=== PATIENT | male | born 1950 | race Caucasian/White ===

== ENCOUNTER 2020-09-05 19:39 | Inpatient (IN) | payer OTHER ==
[~2020-09-05] VITALS: Ht 152.4 cm; Wt 84.4 kg
--- NOTE | ~2020-09-05 | EKG ---
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
[~2020-09-05 19:39] MED LIST: ADULT LOW DOSE81 MG PO; COZAAR 25 MG TA25 MG PO; CRESTOR; LISINOPRIL10 MG PO; MECLIZINE HCL25 M1 PO; METFORMIN 500500 MG PO
[2020-09-05 19:44] VITALS: BP 172/89
[2020-09-05] MEDS ORDERED: GLIPIZIDE 10 MG10 MG PO (20:05)
[2020-09-05] MEDS ORDERED: TOPROL XL100 MG PO (20:06)
[2020-09-05] MEDS ORDERED: LOPRESSOR50 MG PO (20:07)
[2020-09-05] MEDS ORDERED: JARDIANCE25 MG PO (20:08)
[2020-09-05] MEDS ORDERED: LIPITOR80 MG PO (20:08)
[2020-09-05] MEDS ORDERED: HYDROCHLOROTHIA25 M2 PO (20:09)
[2020-09-05] MEDS ORDERED: XARELTO20 MG PO (20:09)
[2020-09-05] MEDS ORDERED: KOMBIGLYZE XR1 EAC1 PO (20:10)
[2020-09-05] MEDS ORDERED: METFORMIN HCL500 MG PO (20:12)
[2020-09-05] MEDS ORDERED: ALOGLIPTIN25 MG PO (20:13)
--- NOTE | 2020-09-05 20:43 | NUR ---
[address] [place] [id number] [phone] EMERGENCY CONTACT SUKI MAGUIRE [phone] INSURANCE ETNA
[2020-09-05 20:45] LABS: ABSOLUTE NEUTROPHILS 5.7 thou/uL (1.4-8.2); BASOPHILS 0.8 % (0.0-2.0); HEMATOCRIT 40.6 % (42.0-52.0); HEMOGLOBIN 13.9 gm/dL (14.0-18.0); LYMPHOCYTES 10.5 % (24.0-44.0); MCH 29.4 pg (26.0-34.0); MCHC 34.2 g/dL (28.0-37.0); MONOCYTES 7.1 % (1.0-8.0); PLATELET COUNT 141 thou/uL (150-400); POLYS 81.6 % (36.0-66.0); RBC 4.72 mil/uL (4.50-6.00); RDW 14.7 % (10.5-14.5)
[2020-09-05 21:01] LABS: ALBUMIN 3.3 g/dL (3.4-5.0); CALCIUM 8.8 mg/dL (8.5-10.1); DIRECT BILIRUBIN 0.4 mg/dL (<0.1-0.2); TOTAL BILIRUBIN 1.2 mg/dL (0.2-1.0); TOTAL PROTEIN 7.5 g/dL (6.4-8.2)
[2020-09-05 21:03] LABS: POTASSIUM 2.7 mmol/L (3.5-5.1)
[2020-09-05 23:41] VITALS: BP 127/75
--- NOTE | 2020-09-05 23:57 | NUR ---
TRIED TO CALL REPORT. NURSE UNAVAILABLE
[2020-09-06 00:04] LABS: URINE BILIRUBIN NEGATIVE (Negative); URINE BLOOD NEGATIVE (Negative); URINE CLARITY CLEAR; URINE COLOR YELLOW; URINE GLUCOSE-RANDOM* 3+ (Negative); URINE KETONES 2+ (Negative); URINE LEUKOCYTES-REFLEX NEGATIVE (Negative); URINE NITRITE-REFLEX NEGATIVE (Negative); URINE PROTEIN (DIPSTICK) NEGATIVE (Negative); URINE UROBILINOGEN 0.2 E.U./dl (0.2-1.0)
--- NOTE | 2020-09-06 04:10 | NUR ---
ADMIT PT ADMITTED TO ROOM 353 VIA ED WITH DIAGNOSIS OF COVID. IV SL TO RIGHT AC FLUSHES WITHOUT DIFFICULTY. WENDIE OAKLEY NOTIFIED OF POSITIVE COVID RESULTS. AWAITNG ORDERS. PT ORIENTED TO ROOM CALL LIGHT AND POC.
[2020-09-06 04:37] VITALS: BP 118/76
[2020-09-06 06:07] LABS: HEMATOCRIT 38.5 % (42.0-52.0); HEMOGLOBIN 13.7 gm/dL (14.0-18.0); MCH 30.2 pg (26.0-34.0); MCHC 35.5 g/dL (28.0-37.0); MCV 85.2 fL (80.0-100.0); RBC 4.52 mil/uL (4.50-6.00); RDW 14.4 % (10.5-14.5)
[2020-09-06 06:22] LABS: CREATININE 0.9 mg/dL (0.7-1.3); POTASSIUM 3.1 mmol/L (3.5-5.1)
[2020-09-06 09:04] VITALS: BP 122/70
--- NOTE | 2020-09-06 10:17 | NUR ---
cm notified during prime time via phone call, that pt just found out that his daughter who was in the icu did not make it. pt also on 3w. he is covid r/o. no anticipated dc over the weekend.
[2020-09-06 16:35] VITALS: BP 120/73
--- NOTE | 2020-09-06 17:31 | NUR ---
PATIENT HAS RESTED IN ROOM THROUGH THE DAY. HE LEARNED FROM THAT THEIR DAUGHTER WHO WAS IN THE ICU DID NOT MAKE IT. PATIENT SILENT IN ROOM. NOTED SOBBING AT TIMES. OFFERED XANAX BUT HE DECLINED STATING HE WILL GO THROUGH THIS. PLEASANT WITH CARES.
[2020-09-06 20:00] VITALS: BP 116/67
--- NOTE | 2020-09-07 01:54 | NUR ---
PT LYING IN BED. DENIES PAIN. RESTING COMFORTABLY. NO NEEDS VOICED. CALL LIGHT WITHIN REACH. FREQUENT OBSERVATION.
[2020-09-07 04:05] VITALS: BP 99/56
[2020-09-07 06:28] LABS: CHOLESTEROL 162 mg/dL (<200); HDL CHOLESTEROL 46 mg/dL (>40); LDL CHOLESTEROL 101 mg/dL (<100); TC:HDL 3.5 Ratio (Not establshd); TRIGLYCERIDE 78 mg/dL (<150); VLDL 16 mg/dL (<40)
[2020-09-07 06:33] LABS: CREATININE 0.8 mg/dL (0.7-1.3); DIRECT BILIRUBIN 0.3 mg/dL (<0.1-0.2); TOTAL BILIRUBIN 0.9 mg/dL (0.2-1.0); TOTAL PROTEIN 6.3 g/dL (6.4-8.2)
[2020-09-07 07:40] VITALS: BP 99/62
[2020-09-07 16:00] VITALS: BP 101/62
--- NOTE | 2020-09-07 19:24 | NUR ---
PATIENT RESTED IN ROOM THROUGH THE DAY. HE IS ALERT ORIENTED X4. RESPIRATIONS ARE NON LABORED., PLEASANT WITH CARE. UP AD KYLE IN ROOM. HAD A SHOWER THIS PM. CONT ON COVID19 THERAPY. TOLERATING WELL.
[2020-09-07 19:34] VITALS: BP 111/59
[2020-09-08 03:40] VITALS: BP 97/55
[2020-09-08 06:20] LABS: HEMATOCRIT 37.7 % (42.0-52.0); HEMOGLOBIN 12.9 gm/dL (14.0-18.0); MCH 29.1 pg (26.0-34.0); MCHC 34.2 g/dL (28.0-37.0); MCV 85.1 fL (80.0-100.0); RBC 4.43 mil/uL (4.50-6.00); RDW 14.7 % (10.5-14.5); WBC 10.6 thou/uL (4.0-11.0)
[2020-09-08 06:27] LABS: CALCIUM 8.8 mg/dL (8.5-10.1); CREATININE 0.9 mg/dL (0.7-1.3); MAGNESIUM 2.3 mg/dL (1.8-2.4); POTASSIUM 3.4 mmol/L (3.5-5.1)
[2020-09-08 06:31] LABS: ALBUMIN 2.6 g/dL (3.4-5.0); DIRECT BILIRUBIN 0.2 mg/dL (<0.1-0.2); TOTAL BILIRUBIN 0.6 mg/dL (0.2-1.0); TOTAL PROTEIN 6.3 g/dL (6.4-8.2)
--- NOTE | 2020-09-08 06:43 | NUR ---
ASSUMED CARE AT 1900, ASSESSMENT COMPLETED. PT DENIED PAIN OR NAUSEA, REPORTED OCCASIONAL COUGH. PT IS DEPRESSED/SAD D/T RECENT OF DAUGHTER AND HAVING TO STAY IN HOSPITAL. HAS BEEN AFIB W/BBB HR 70-90 OVERNIGHT. NO OTHER CONCERNS, WILL CONTINUE TO MONITOR.
--- NOTE | 2020-09-08 11:33 | NUR ---
ORDERS RECEIVED FOR EVAL AND TREAT. NURSING NOTES SAY Pt UP AD KYLE. SPOKE WITH Pt WHO STATES HE GETS UP TO THE BATHROOM BY HIMSELF AND HAS BEEN WALKING IN THE ROOM WITHOUT DIFFICULTY. Pt DECLINING FORMAL P.T. EVAL. NURSING AWARE AND IN AGREEMENT.
[2020-09-08 15:17] VITALS: BP 106/70
--- NOTE | 2020-09-08 19:25 | NUR ---
PT WAS SEEN BY THIS SHIFT. NO ACUTE PROCESSES THIS SHIFT. PT IS STILL ON THE REMDESEVIR THERAPY, ALL MEDICATIONS WERE GIVEN ORDERED, PT PRESENTED WITH DEPRESSION AT THE BEGNNING OF THE SHIFT BUT WAS BRIGHTER TOWARDS THE END. PT IS STILL WEAK, SHOWING SIGNS OF FATIGUE WITH LITTLE MOVEMENT. PTS PRIMARY CONCERN THIS SHIFT WAS RETURNING TO [employer] AND RETREIVING A DR'S NOTE TO SUBMIT TO WORK. RN SIGNING OFF AT THIS TIME.
[2020-09-08 20:06] VITALS: BP 125/58
[2020-09-09 03:58] VITALS: BP 99/60
[2020-09-09 05:37] LABS: ALBUMIN 2.6 g/dL (3.4-5.0); DIRECT BILIRUBIN 0.1 mg/dL (<0.1-0.2); TOTAL BILIRUBIN 0.4 mg/dL (0.2-1.0); TOTAL PROTEIN 6.1 g/dL (6.4-8.2)
[2020-09-09 06:06] LABS: CALCIUM 8.7 mg/dL (8.5-10.1); CREATININE 0.9 mg/dL (0.7-1.3); POTASSIUM 4.2 mmol/L (3.5-5.1)
--- NOTE | 2020-09-09 07:34 | NUR ---
ASSUMED PT CARE AROUND 1930. AXOX4. INDEPENDENT WITH ADLs. VSS. NO S/S ACUTE DISTRESS NOTED OR REPORTED AT THIS TIME. CARE TRANSFEERED TO AM RN AT THIS TIME.
[2020-09-09 07:48] VITALS: BP 110/68
--- NOTE | 2020-09-09 13:24 | NUR ---
PT ALERT AND ORIENTED TIMES FOUR. VSS. PT DENIES PAIN/SOA. PT UP AB KYLE WITH STEADY GAIT. PT TOLERATES MEDS AND MEALS. PT PROGRESSING TOWRADS POC GOALS.
[2020-09-09 15:30] VITALS: BP 115/82
[2020-09-09 15:46] VITALS: BP 115/82
--- NOTE | 2020-09-09 15:47 | NUR ---
Chart reviewed and discussed with the care team. Pt is on the Covid unit and in enhanced ISO. He is from home and lives with his who is currently inpt in 358 as well. Their dtr Robyn over the weekend from Covid. Dtr Denise updated today and notes that she has recovered from Covid and returned to work today. She is available in the afternoon to transport the pt home. She reports that he is normally indep and was working prior to getting sick. He is currently up ad yobani in the room and anxious to dc home. No dme or hh f/u are indicated at this time. He is on roomair. Pt to get his last dose of Remdesivir tomorrow and may be able to dc home after. Will follow along should dc needs arise.
[2020-09-09 19:45] VITALS: BP 99/59
--- NOTE | 2020-09-10 03:22 | NUR ---
PT AOX4.PT DENIES PAIN AND SOB WHILE ON ROOM AIR. PT TOLERATING PO INTAKE OF FLUIDS AND HEART HEALTHY DIET WITHOUT ISSUE, MAINTAINS GOOD APPETITE. PT AMBULATING INDEPENDENTLY IN ROOM TO BATHROOM. PT NOT EXPRESSING SIGNS OF POOR COPING WITH RECENT LOSS OF DAUGHTER AND HOSPITALIZATION OF SELF AND . PT DENIES ANXIETY, PT HAS PRN PO XANAX Q6HR AVAILABLE. PT ENCOURAGED TO NOTIFY STAFF FOR ALL NEEDS, CALL LIGHT WITHIN REACH, BED IN LOWEST POSITION, FREQUENT MONITORING WILL CONTINUE.
[2020-09-10 04:02] VITALS: BP 109/65
[2020-09-10 06:51] LABS: ALBUMIN 2.6 g/dL (3.4-5.0); CREATININE 0.8 mg/dL (0.7-1.3); DIRECT BILIRUBIN 0.2 mg/dL (<0.1-0.2); TOTAL BILIRUBIN 0.6 mg/dL (0.2-1.0); TOTAL PROTEIN 5.9 g/dL (6.4-8.2)
[2020-09-10 07:27] VITALS: BP 125/85
[2020-09-10] MEDS ORDERED: VITAMIN D325 MC1 PO (10:41)
[2020-09-10] MEDS ORDERED: VITAMIN B-1100 M2 PO (10:41)
[2020-09-10] MEDS ORDERED: ZINC SULFATE 2220 MG PO (10:41)
[2020-09-10] MEDS ORDERED: PREDNISONE 10 M10 M1 PO (10:42)
[2020-09-10] MEDS ORDERED: CEFUROXIME250 MG PO (10:43)
[2020-09-10 13:15] VITALS: BP 115/82
--- NOTE | 2020-09-10 14:46 | NUR ---
DISCHARGE NOTE: SW reviewed chart and spoke with nursing and attending physician. Pt remains in Enhanced Isolation due to COVID-19. Pt to complete course of Remdesivir and is medically stable to discharge home today. Pt's dtr to provide transportation home. No additional SW needs identified at this time, but is available to assist should needs arise.
== END 2020-09-10 14:26 | disposition home or self-care (01) | DRG 871 ==
LOC: ER 19:39 → 3W 23:08 → EROBS 23:08 → 3W 09-06 00:25
PROVIDERS: Emergency Medicine; Nurse Practitioner; Nurse Practitioner Family; ADMIT Internal Medicine; ATTEND Internal Medicine
PROC: XW033E5 Introduction of Remdesivir Anti-infective into Peripheral Vein, Percutaneous Approach, New Technology Group 5 (ICD-10-PCS; principal; 2020-09-06)
DX: A41.89 Other specified sepsis (principal); U07.1 COVID-19; J12.89 Other viral pneumonia; I48.20 Chronic atrial fibrillation, unspecified; I42.8 Other cardiomyopathies; I10 Essential (primary) hypertension; E11.9 Type 2 diabetes mellitus without complications; E78.5 Hyperlipidemia, unspecified; E87.6 Hypokalemia; I25.2 Old myocardial infarction; Z79.01 Long term (current) use of anticoagulants; Z90.49 Acquired absence of other specified parts of digestive tract; Z79.84 Long term (current) use of oral hypoglycemic drugs; Z79.82 Long term (current) use of aspirin; Z79.899 Other long term (current) drug therapy; Z86.711 Personal history of pulmonary embolism; Z95.1 Presence of aortocoronary bypass graft
CPT/HCPCS: 10879

== ENCOUNTER → 2020-10-13 | Outpatient (CLI) | payer OTHER ==
[~2020-10-13] MED LIST changes: +ALOGLIPTIN25 MG PO; +CEFUROXIME250 MG PO; +GLIPIZIDE 10 MG10 MG PO; +HYDROCHLOROTHIA25 M2 PO; +JARDIANCE25 MG PO; +KOMBIGLYZE XR1 EAC1 PO; +LIPITOR80 MG PO; +LOPRESSOR50 MG PO; +METFORMIN HCL500 MG PO; +PREDNISONE 10 M10 M1 PO; +TOPROL XL100 MG PO; +VITAMIN B-1100 M2 PO; +VITAMIN D325 MC1 PO; +XARELTO20 MG PO; +ZINC SULFATE 2220 MG PO
== END ==
LOC: SJCVCIMAG 10:12
PROVIDERS: ATTEND Internal Medicine
DX: I08.8 Other rheumatic multiple valve diseases (principal); I11.9 Hypertensive heart disease without heart failure; I48.20 Chronic atrial fibrillation, unspecified; I42.9 Cardiomyopathy, unspecified; I25.810 Atherosclerosis of coronary artery bypass graft(s) without angina pectoris; E11.9 Type 2 diabetes mellitus without complications; E78.5 Hyperlipidemia, unspecified; I25.2 Old myocardial infarction; Z82.49 Family history of ischemic heart disease and other diseases of the circulatory system; Z86.711 Personal history of pulmonary embolism; Z95.1 Presence of aortocoronary bypass graft; Z87.891 Personal history of nicotine dependence

== ENCOUNTER 2020-11-19 09:37 | Emergency (ER) | payer OTHER ==
[~2020-11-19] VITALS: Ht 172.7 cm; Wt 88.5 kg
[2020-11-19 10:40] VITALS: BP 112/82
== END 2020-11-19 10:40 | disposition home or self-care (01) ==
LOC: ER 09:37
DX: R04.0 Epistaxis (principal); I48.91 Unspecified atrial fibrillation; E11.9 Type 2 diabetes mellitus without complications; E78.5 Hyperlipidemia, unspecified; I25.2 Old myocardial infarction; I10 Essential (primary) hypertension; Z90.49 Acquired absence of other specified parts of digestive tract; Z79.899 Other long term (current) drug therapy

== ENCOUNTER 2021-01-30 01:43 | Emergency (ER) | payer OTHER ==
[~2021-01-30] VITALS: Ht 170.2 cm; Wt 86.6 kg
[2021-01-30] MEDS ORDERED: KEFLEX500 M1 PO (03:01)
[2021-01-30 03:13] VITALS: BP 118/67
== END 2021-01-30 03:18 | disposition home or self-care (01) ==
LOC: ER 01:43
DX: R04.0 Epistaxis (principal); I25.2 Old myocardial infarction; I10 Essential (primary) hypertension; E11.9 Type 2 diabetes mellitus without complications; I48.91 Unspecified atrial fibrillation; Z79.899 Other long term (current) drug therapy

== ENCOUNTER 2021-02-01 13:31 | Emergency (ER) | payer OTHER ==
[~2021-02-01] VITALS: Ht 170.2 cm; Wt 86.6 kg
[~2021-02-01 13:31] MED LIST changes: +KEFLEX500 M1 PO
[2021-02-01 16:17] VITALS: BP 139/86
== END 2021-02-01 16:15 | disposition home or self-care (01) ==
LOC: ER 13:31
DX: R04.0 Epistaxis (principal); I10 Essential (primary) hypertension; I25.2 Old myocardial infarction; E11.9 Type 2 diabetes mellitus without complications; I48.91 Unspecified atrial fibrillation; E78.5 Hyperlipidemia, unspecified; Z79.899 Other long term (current) drug therapy

== ENCOUNTER 2021-05-24 14:24 | Emergency (ER) | payer OTHER ==
[~2021-05-24] VITALS: Ht 170.2 cm; Wt 81.7 kg
[2021-05-24 14:59] LABS: BASOPHILS 0.9 % (0.0-2.0); EOSINOPHILS 1.8 % (0.0-3.0); HEMOGLOBIN 14.1 gm/dL (14.0-18.0); LYMPHOCYTES 15.3 % (24.0-44.0); MCH 28.5 pg (26.0-34.0); MCHC 34.3 g/dL (28.0-37.0); MONOCYTES 9.3 % (1.0-8.0); PLATELET COUNT 215 thou/uL (150-400); POLYS 72.7 % (36.0-66.0); RBC 4.94 mil/uL (4.50-6.00); RDW 16.2 % (10.5-14.5); WBC 6.8 thou/uL (4.0-11.0)
[2021-05-24 15:12] LABS: ANION GAP 10 mmol/L (7-16); BUN 14 mg/dL (7-18); CALCIUM 9.1 mg/dL (8.5-10.1); CHLORIDE 107 mmol/L (98-107); CO2 25 mmol/L (21-32); CREATININE 0.8 mg/dL (0.7-1.3); GLUCOSE 140 mg/dL (74-106); SODIUM 142 mmol/L (136-145)
[2021-05-24 15:20] LABS: TROPONIN-I <0.06 ng/mL (<0.06)
[2021-05-24 17:30] VITALS: BP 117/81
[2021-05-24] MEDS ORDERED: FLEXERIL PO (17:30)
--- NOTE | 2021-05-25 07:30 | EKG ---
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1950 Requested By: Carson Macedo Order Number: [id number] MD: Glenn Capone Measurements Intervals [place] Rate: 91 P: [place]: QRS: -36 QRSD: 147 T: 2 QT: 386 QTc: 475 Interpretive Statements Atrial fibrillation Right bundle branch block Inferior infarct, old Compared to ECG 12/31/2009 19:54:52 Right bundle-branch block now present Sinus rhythm no longer present Myocardial infarct finding still present Electronically Signed On 05-25-2021 7:30:42 CDT by Glenn Capone [email or web address] <ELECTRONICALLY SIGNED> By: Glenn Capone MD, [facility] 05/25/21 0730 1426 1426 Glenn Capone MD, [facility] /EPI
== END 2021-05-24 17:32 | disposition home or self-care (01) ==
LOC: ER 14:24
PROVIDERS: Nurse Practitioner
DX: R07.89 Other chest pain (principal); I25.2 Old myocardial infarction; I10 Essential (primary) hypertension; I48.91 Unspecified atrial fibrillation; E11.9 Type 2 diabetes mellitus without complications; Z20.822 Contact with and (suspected) exposure to COVID-19; Z86.16 Personal history of COVID-19; Z90.49 Acquired absence of other specified parts of digestive tract; Z79.899 Other long term (current) drug therapy; Z79.84 Long term (current) use of oral hypoglycemic drugs